=== PATIENT | male | born 1995 | race Caucasian/White ===

== ENCOUNTER 2022-12-25 11:03 | Inpatient (IN) | payer MEDICAID, OTHER ==
[~2022-12-25] VITALS: Ht 177.8 cm; Wt 117.0 kg
[~2022-12-25 11:03] MED LIST: CLON0.1T16 PO; CLON1TAB PO; DIPH12.583 PO
[2022-12-25 11:16] VITALS: BP 128/64
--- NOTE | 2022-12-25 11:43 | NUR ---
PATIENT PRESENTS TO ED WITH TESTICULAR PAINX1 WEEK . PT DENIES ANY TRAUMA . DENIES N/V/D; SKIN IS PINK/WARM/DRY; AAOX4 WITH EVEN AND STEADY GAIT; LUNGS CLEAR BL; HR EVEN AND REGULAR; PT DENIES ANY FEVER, CP, SOB, OR COUGH AT THIS TIME; PATIENT STATES PAIN OF 8/10 AT THIS TIME; VSS; PATIENT POSITIONED FOR COMFORT; HOB ELEVATED; BEDRAILS UP X2; BED DOWN. ER MD MADE AWARE OF PT STATUS.
[2022-12-25 12:51] LABS: BASOPHILS % (AUTO) 0.4 % (0.0-2.0); EOSINOPHILS % (AUTO) 0.4 % (0.0-4.0); HEMATOCRIT 41.7 % (36-52); HEMOGLOBIN 14.5 g/dL (12.0-18.0); LYMPHOCYTES # (AUTO) 1.7 K/uL (2.0-11.5); LYMPHOCYTES % (AUTO) 20.9 % (20.5-51.1); MEAN CORPUSCULAR HEMOGLOBIN 31 pg (27-31); MEAN CORPUSCULAR HGB CONC 35 g/dL (33-37); MEAN CORPUSCULAR VOLUME 89.3 fL (80-94); MONOCYTES # (AUTO) 1.2 K/uL (0.8-1.0); MONOCYTES % (AUTO) 14.6 % (1.7-9.3); NEUTROPHILS # (AUTO) 5.3 K/uL (1.8-7.7); NEUTROPHILS % (AUTO) 63.7 % (42.2-75.2); PLATELET COUNT (AUTO) 163 K/uL (140-450); RED BLOOD CELL COUNT(AUTO) 4.68 MIL/uL (4.20-6.10); RED CELL DISTRIBUTION WIDTH 12.9 % (11.6-13.7); WHITE BLOOD COUNT (AUTO) 8.3 K/uL (4.8-10.8)
[2022-12-25 13:17] LABS: ALBUMIN 3.8 g/dL (3.4-5.0); ANION GAP 11.8 (8-16); CARBON DIOXIDE 28.9 mmol/L (21-32); CREATININE 0.9 mg/dL (0.6-1.3); POTASSIUM 3.7 mmol/L (3.5-5.1); TOTAL BILIRUBIN 0.6 mg/dL (0.0-1.0)
[2022-12-25 14:30] LABS: PROTHROMBIN TIME 10.3 secs (10.8-13.4)
[2022-12-25] MEDS ORDERED: KETOROLAC 30 MG/ML VIAL IVP ONE (14:30)
[2022-12-25] MEDS ORDERED: MORPHINE SULFATE 2 MG/ML SYR IVP PRN (14:45)
[2022-12-25] MEDS ORDERED: HYDROcodone/APAP 5/325 MG 1 TAB TAB PO PRN (14:45)
[2022-12-25] MEDS ORDERED: ONDANSETRON 4 MG/2 ML VIAL IVP PRN (14:45)
[2022-12-25] MEDS ORDERED: LORazepam 2 MG/ML VIAL IVP PRN (14:45)
[2022-12-25] MEDS ORDERED: ACETAMINOPHEN 325 MG TAB PO PRN (14:45)
--- NOTE | 2022-12-25 16:30 | NUR ---
PATIENT IN BED, ACCOMPANIED BY PARENT. NO S/S OF DISTRESS AT THIS TIME
[2022-12-25] MEDS ORDERED: cefTRIAXone 1,000 MG VIAL ONE (16:59)
[2022-12-25] MEDS ORDERED: KETOROLAC 30 MG/ML VIAL ONE (17:00)
[2022-12-25] MEDS: NACL 0.9% 1,000 ML IV SCH (17:23)
[2022-12-25] MEDS ORDERED: CLON0.1T15 PO (18:33)
[2022-12-25] MEDS ORDERED: SERT-514 PO (18:33)
--- NOTE | 2022-12-25 19:30 | NUR ---
REPORT GIVEN TO MANGO SALVADOR FOR CONTINUITY OF CARE
--- NOTE | 2022-12-25 19:42 | NUR ---
Swabs and urine collected and sent to lab
[2022-12-25 20:18] LABS: APPEARANCE,URINE CLEAR (CLEAR); BILIRUBIN,URINE NEGATIVE (NEGATIVE); BLOOD, URINE NEGATIVE (NEGATIVE); COLOR,URINE YELLOW (YELLOW); LEUKOCYTE ESTERASE ,URINE NEGATIVE (NEGATIVE); NITRITE, URINE NEGATIVE (NEGATIVE); UGLUCOSE NEGATIVE (NEGATIVE)
[2022-12-25 22:20] VITALS: BP 111/61
--- NOTE | 2022-12-25 22:20 | NUR ---
RECEIVED REPORT FROM ER NURSE MADELEINE FOR CONTINUITY OF CARE. PATIENT IS A&O X3. PATIENT IS ON ROOM AIR, BREATHING IS NORMAL WITH SYMMETRICAL RISE AND FALL OF CHEST. PATIENT'S IV IS 20G RAC, RUNNING NS AT 80. PATIENT ARRIVED ON UNIT WITH MOTHER. PATIENT HAS SEVERE AUTISM AND MOTHER IS AT PATIENT'S BEDSIDE TO PROVIDE COMFORT TO PATIENT AND HELP ANSWER QUESTIONS. MOTHER IS SINHAL[place] SPEAKING. PATIENT IS LYING SUPINE IN BED, BED IS IN LOWEST POSITION WITH WHEELS LOCKED AND CALL LIGHT IN PLACE. WILL CONTINUE TO OBSERVE PATIENT.
[2022-12-26] MEDS: NACL 0.9% 1,000 ML IV SCH ×2 (03:15→07:37)
--- NOTE | 2022-12-26 03:58 | NUR ---
PATIENT HAS CONTINUED TO SLEEP OFF AND ON THROUGH THE NIGHT WITH MOTHER AT BEDSIDE. BREATHING IS NORMAL WITH SYMMETRICAL RISE AND FALL OF CHEST. WILL CONTINUE TO OBSERVE PATIENT.
[2022-12-26 04:00] VITALS: BP 116/69
--- NOTE | 2022-12-26 07:20 | NUR ---
ASSUMED CONTINUITY OF CARE. PT. MOTHER ON BEDSIDE. INITIAL ASSESSMENT DONE. KEEP COMFORTABLE ON BED. CALL LIGHT WITHIN REACH.
--- NOTE | 2022-12-26 07:22 | NUR ---
DR. DICKENS CAME SPOKE TO PT. AND PT. MOTHER AT BEDSIDE.
[2022-12-26 07:27] LABS: BASOPHILS % (AUTO) 0.4 % (0.0-2.0); EOSINOPHILS # (AUTO) 0.1 K/uL (0-0.4); EOSINOPHILS % (AUTO) 0.6 % (0.0-4.0); HEMATOCRIT 40.5 % (36-52); HEMOGLOBIN 13.8 g/dL (12.0-18.0); LYMPHOCYTES # (AUTO) 1.5 K/uL (2.0-11.5); LYMPHOCYTES % (AUTO) 17.5 % (20.5-51.1); MEAN CORPUSCULAR HEMOGLOBIN 30 pg (27-31); MEAN CORPUSCULAR HGB CONC 34 g/dL (33-37); MEAN CORPUSCULAR VOLUME 88.3 fL (80-94); MONOCYTES # (AUTO) 0.9 K/uL (0.8-1.0); MONOCYTES % (AUTO) 10.6 % (1.7-9.3); NEUTROPHILS # (AUTO) 6.2 K/uL (1.8-7.7); NEUTROPHILS % (AUTO) 70.9 % (42.2-75.2); PLATELET COUNT (AUTO) 166 K/uL (140-450); RED BLOOD CELL COUNT(AUTO) 4.58 MIL/uL (4.20-6.10); RED CELL DISTRIBUTION WIDTH 12.9 % (11.6-13.7); WHITE BLOOD COUNT (AUTO) 8.8 K/uL (4.8-10.8)
--- NOTE | 2022-12-26 07:32 | NUR ---
ENDORSED TO DAY SHIFT NURSE JACI FOR CONTINUITY OF CARE. PATIENT IS STABLE.
[2022-12-26 07:53] LABS: ALBUMIN 3.5 g/dL (3.4-5.0); ANION GAP 12.7 (8-16); CARBON DIOXIDE 26.8 mmol/L (21-32); CREATININE 0.9 mg/dL (0.6-1.3); MAGNESIUM 1.9 mg/dL (1.8-2.4); POTASSIUM 3.5 mmol/L (3.5-5.1); TOTAL BILIRUBIN 0.7 mg/dL (0.0-1.0)
[2022-12-26 08:00] VITALS: BP 122/75
[2022-12-26] MEDS ORDERED: ENOXAPARIN 40 MG/0.4 ML SYR SUBQ SCH (09:00)
--- NOTE | 2022-12-26 09:50 | NUR ---
PATIENT HAS BEEN SCREENED AND CATEGORIZED LOW NUTRITION RISK. PATIENT WILL BE SEEN WITHIN 7 DAYS OF ADMISSION. 01/01/[address] BY SR[address]IV[address] MEND[address]
--- NOTE | 2022-12-26 10:08 | NUR ---
PAGED DR. DICKENS REGARDING PT. MOTHER AND PT. BROTHER -CAODAISM REFUSAL TO SIGN CONSENT FOR LEFT RADICAL ORCHIECTOMY.
--- NOTE | 2022-12-26 10:30 | NUR ---
DR. DICKENS CALLED AND SPOKE TO PT. BROTHER -CORBIN OVER THE PHONE REGARDING PROCEDURE. ACCORDING TO CORBIN, THEY WILL CHOOSE TO D/C PT. AND GO TO [facility] TO GET PROCEDURE DONE. INFORMED CHARGE NURSE JUSTIN PLATT
--- NOTE | 2022-12-26 10:55 | NUR ---
CALLED DR. DICKENS PER PT. BROTHER -BAHAI REQUEST. DR. DICKENS SPOKE TO BAHAI AND DECIDED TO CANCEL PROCEDURE PER FAMILY MEMBER REQUEST. INFORMED CHARGE NURSE JUSTIN -MANGO AND MAIL FORWARDING SYSTEM MARKUP CLERK -RUFUS.
--- NOTE | 2022-12-26 11:08 | NUR ---
PAGED DR. KUO AND INFORMED THAT DR. DICKENS CANCELLED LEFT RADICAL ORCHIECTOMY PROCEDURE AND PT. BROTHER -JAINISM WANTED PT. TO D/C HOME.
--- NOTE | 2022-12-26 12:05 | NUR ---
DR. KUO CAME AND SPOKE TO PT. AND PT. FAMILY MEMBERS ON BEDSIDE.
[2022-12-26 16:00] VITALS: BP 126/69
--- NOTE | 2022-12-26 17:35 | NUR ---
REFUSED TO USE WHEELCHAIR. D/C HOME ACCOMPANIED BY PT. FAMILY MEMBERS. IN STABLE CONDITION. INFORMED CHARGE NURSE JUSTIN PLATT.
--- NOTE | 2023-01-08 16:22 | NUR ---
[facility] [address] [address] AND SPOKE WITH JUSTIN WHO INFORMED ME PT MADE APPOINTMENT FOR 01/10/2023 AT 0900 WITH RAQUEL MOFFETT
== END 2022-12-26 17:40 | disposition home or self-care (01) | DRG 501 ==
LOC: MED 11:03 → MTU 14:30
PROVIDERS: ADMIT Hospitalist; ATTEND Hospitalist
DX: N50.9 Disorder of male genital organs, unspecified (principal); C79.89 Secondary malignant neoplasm of other specified sites; F84.0 Autistic disorder; N43.3 Hydrocele, unspecified; Z20.822 Contact with and (suspected) exposure to COVID-19; I10 Essential (primary) hypertension; J45.909 Unspecified asthma, uncomplicated; N50.819 Testicular pain, unspecified
CPT/HCPCS: 36415; 76870; 80053; 81003; 82105; 83735; 85025; 85610; 85730; 87081; 96374; 96375; 99285; J0696; J1885; J7060; Q0092; Q9967